=== PATIENT | male | born 1960 | race African-American/Black ===

== ENCOUNTER 2016-12-06 07:03 | Emergency (ER) | payer MEDICAID ==
[~2016-12-06] VITALS: Ht 180.3 cm; Wt 117.9 kg
[2016-12-06 07:33] VITALS: BP 138/85
[2016-12-06] MEDS ORDERED: metFORMIN HYDROCHLORIDE 500 MG TAB PO ONE (08:15)
[2016-12-06] MEDS ORDERED: cefTRIAXone SOD 1,000 MG VL IM ONE (08:15)
[2016-12-06] MEDS ORDERED: diphenhdrAMINE HCL 50 MG/1 ML VL IM ONE (08:15)
[2016-12-06] MEDS ORDERED: LIDOCAINE 1% HCL (LOCAL ANESTH.) INJ 20ML MDV IJ ONE (08:30)
== END 2016-12-06 08:56 | disposition home or self-care (01) ==
LOC: ER 07:03
DX: S50.861A Insect bite (nonvenomous) of right forearm, initial encounter (principal); T78.40XA Allergy, unspecified, initial encounter; Z76.0 Encounter for issue of repeat prescription; W57.XXXA Bitten or stung by nonvenomous insect and other nonvenomous arthropods, initial encounter; Y93.89 Activity, other specified; Y99.8 Other external cause status; Y92.89 Other specified places as the place of occurrence of the external cause
CPT/HCPCS: 96372; 99284; J0696; J1200; J2001

== ENCOUNTER 2021-12-05 07:35 | Emergency (ER) | payer MEDICAID, OTHER ==
[~2021-12-05] VITALS: Ht 177.8 cm; Wt 113.6 kg
[2021-12-05 07:40] VITALS: BP 168/90
[2021-12-05] MEDS ORDERED: CYCL-837 PO (10:59)
== END 2021-12-05 11:24 | disposition home or self-care (01) ==
LOC: ER 07:35 → EDBD 07:35 → ER 11:23
DX: S39.012A Strain of muscle, fascia and tendon of lower back, initial encounter (principal); S80.01XA Contusion of right knee, initial encounter; S50.01XA Contusion of right elbow, initial encounter; W18.39XA Other fall on same level, initial encounter; Y93.01 Activity, walking, marching and hiking; Y92.89 Other specified places as the place of occurrence of the external cause; Y99.8 Other external cause status
CPT/HCPCS: 72100; 73080; 73562